=== PATIENT | male | born 1990 | race Caucasian/White ===

== ENCOUNTER 2018-06-13 09:41 | Emergency (ER) | payer SELFPAY ==
[2018-06-13] MEDS ORDERED: ONDANSETRON 4 MG/2 ML VIAL ONE (10:04)
[2018-06-13 10:25] LABS: Absolute Lymphocytes (CBC) 1.9 K/uL (0.7-4.9); Absolute Monocytes 0.8 K/uL (0.1-1.3); Absolute Neutrophil 17.9 K/uL (1.8-8.0); Basophils % 0.2 % (0-1.3); Hematocrit 47.6 % (39.6-49.0); Lymphocytes % 9.1 % (15.3-44.8); MPV 9.4 fL (7.6-11.3); RBC Red Blood Cell Count 5.19 M/uL (4.33-5.43)
--- NOTE | 2018-06-13 10:42 | RAD REPORT ---
EXAM DESCRIPTION: CT - CTHCSPWOC - 06/13/2018 10:12 am CLINICAL HISTORY: Trauma, head and neck injury. PAIN COMPARISON: [id number] dated 12/05/2010; Facial Bones W Con Mpr dated 06/13/2018 TECHNIQUE: Axial 5 mm thick images of the head were obtained. Axial 2 mm thick images of the cervical spine were obtained with sagittal and coronal reconstruction images generated and reviewed. Axial 2 mm thick images of the face were obtained with sagittal and coronal reconstructed images gene rated and reviewed. All CT scans are performed using dose optimization technique as appropriate and may include automated exposure control or mA/KV adjustment according to patient size. FINDINGS: CT HEAD WITHOUT CONTRAST: Acute subarachnoid hemorrhage is seen in the right temporal lobe.A focal intraparenchymal hematoma me asuring up 12 mm is also present involving the right temporal tip. Right convexity subdural hematoma is present maximally measuring 4 mm in thickness. A small amount of air is present in the right front al lobe compatible with pneumocephalus. There is minimal right to left midline shift present of 3 mm. Extensive right-sided calvarial and facial bone fracture is seen, fully detailed in dedicated CT face study. Hemorrhagic fluid is present in the sphenoid sinus and posterior ethmoid air cells. A large amount so ft tissue swelling is seen surrounding the right orbit and globe. Moderate right globe proptosis is p resent without vitreous abnormality. CT CERVICAL SPINE WITHOUT CONTRAST: No acute fracture or subluxation seen. . CT FACE WITHOUT CONTRAST: Comminuted fracture is present of the right zygoma. Fracture of the squamous right temporal bone is p resent with 4 mm inward depression and mild pneumocephalus. Right frontal bone fractures also present with mild inward depression. Fracture of the superior, lateral and inferior orbital rims present. Th ere is a large amount of periorbital soft tissue swelling present. The fracture extends to involve th e anterior aspect of the middle cranial fossa including the orbital apex. And right clinoid. Moderate fluid is present in the sphenoid sinus, likely hemorrhage. IMPRESSION: Acute right subdural hematoma is present with right subarachnoid hemorrhage also identif ied. Focal hemorrhagic intraparenchymal hematoma measuring 12 mm right temporal lobe tip. Right to left midline shift of 3 mm. Right zygomaticomaxillary complex fracture as detailed with hemorrhage within the sphenoid sinus. Mar ked right globe proptosis with extensive fractures involving the right orbit. Mildly depressed right lateral frontal calvarium and squamous right temporal bone fractures. Findings were discussed with BEN Pelletier in the ER 10:30 a.m. 06/13/2018 by telephone.
[2018-06-13] MEDS ORDERED: NA CHLORIDE 0.9% 1,000 ML ONE (11:14)
[2018-06-13] MEDS ORDERED: CLINDAMYCIN 900MG/D5W 900 MG/50 ML IVPB IV ONE (11:14)
[2018-06-13] MEDS ORDERED: MORPHINE 4 MG/ML SYR ONE (11:14)
--- NOTE | 2018-06-13 11:27 | ER ---
Nurse's Notes [facility] Name: Aston Vasquez Jr Age: 27 yrs Sex: Male : 1990 Arrival Date: 06/13/2018 Time: 09:44 Bed 4 Private MD: None, None Diagnosis: Traumatic subdural hemorrhage;Traumatic Subarachnoid hemorrhage;Pneumocephalus;Right Zygomaticomaxillary complex fracture with hemorrhage within the sphenoid sinus;Right globe proptosis with extensive right orbit fractures;Mildly depressed right frontal calvarium fracture;Rish temporal bone fracture Presentation: 06/13 09:49 Presenting complaint: Patient states: i fell and hit a tree last night and my eye has tw2 gotten worse, i have a terrible headache. pt is actively vomiting at this time. Transition of care: patient was not received from another setting of care. Onset of symptoms was June 13, 2018. Risk Assessment: Do you want to hurt yourself or someone else? Patient reports no desire to harm self or others. Initial Sepsis Screen: Does the patient meet any 2 criteria? No. Patient's initial sepsis screen is negative. Does the patient have a suspected source of infection? No. Patient's initial sepsis screen is negative. Care prior to arrival: None. 09:49 Method Of Arrival: Wheelchair tw2 09:50 Acuity: SUMAN 2 tw2 10:14 Mechanism of Injury: Fall fell onto "tree stump". Trauma event details: Injury occurred ph in the [facility], Injury occurred: at home. Injury occurred: June 13, 2018. Triage Assessment: 09:45 General: Appears well groomed, unkempt, Behavior is anxious. Pain: Complains of pain in tw2 right eye. EENT: Eyes swelling and bruising noted to right eye. Trauma Activation: Not Applicable Physician: ED Physician; Name: ; Notified At: ; Arrived At: Physician: General Surgeon; Name: ; Notified At: ; Arrived At: Physician: Radiology; Name: ; Notified At: ; Arrived At: Physician: Respiratory; Name: ; Notified At: ; Arrived At: Physician: Lab; Name: ; Notified At: ; Arrived At: Historical: - Allergies: 09:52 No Known Drug Allergies; tw2 - Home Meds: 09:52 Zoloft Oral [Active]; tw2 - PSHx: 09:52 None; tw2 - Immunization history:: Adult Immunizations. - Social history:: Smoking status: . - Immunization history: Last tetanus immunization: unknown. - Ebola Screening: : Patient denies travel to an Ebola-affected area in the 21 days before illness onset. Screenin:08 Abuse screen: Denies threats or abuse. Denies injuries from another. Nutritional ph screening: No deficits noted. Tuberculosis screening: No symptoms or risk factors identified. Fall Risk Fall in past 12 months (25 points). No secondary diagnosis (0 pts). IV access (20 points). Ambulatory Aid- None/Bed Rest/Nurse Assist (0 pts). Gait- Normal/Bed Rest/Wheelchair (0 pts) Mental Status- Oriented to own ability (0 pts). Total Coats Fall Scale indicates Low Risk Score (25-44 pts). Fall prevention measures have been instituted. Side Rails Up X 2 Frequent Obs/Assesments occuring Family Present and informed to notify staff if they need to leave bedside As available Patient and Family Educated on Fall Prevention Program and strategies. Primary Survey: 10:10 NO uncontrolled hemorrhage observed. A: The patient is alert. Airway: patent, No ph supplemental oxygen in use on arrival. Oral cavity: clear, Trachea midline. Breathing/Chest: Respiratory pattern: regular, Respiratory effort: spontaneous, unlabored, Chest inspection: symmetrical rise and fall of the chest. Circulation: Skin color: pink, Skin temperature: warm, dry. Disability Alert. Exposure/Environment: Obvious injury(ies) are noted at this time: swelling noted to R eye. 11:41 Reassessment Airway Airway Oxygen No O2 Breathing/Chest Respiratory pattern Regular ph Respiratory effort Spontaneous Unlabored Chest inspection Symmetrical Circulation Heart rhythm Sinus michelle Color [place] Temperature Warm Dry Disability Alert. Secondary Survey: 10:11 HEENT: Eyes: Edema noted right eye. Ecchymosis noted right eye. Ears: clear ph bilaterally. Nose: dried blood noted. Gastrointestinal: Patient is actively vomiting. Patient vomited prior to arrival. Musculoskeletal: Circulation, motion, and sensation intact. Range of motion: intact in all extremities. Assessment: 10:06 General: Appears in no apparent distress. uncomfortable, well groomed, Behavior is ph calm, cooperative, appropriate for age. Pain: Complains of pain in right eye. Neuro: Level of Consciousness is awake, alert, obeys commands, Oriented to person, place, time, situation, Speech is normal, Reports blurred vision dizziness, headache. Cardiovascular: Capillary refill < 3 seconds in bilateral fingers Patient's skin is warm and dry. Respiratory: Airway is patent Trachea midline Respiratory effort is even, labored. GI: Reports nausea, vomiting. EENT: R eye swollen w/ dark purple bruising noted, dried blood also noted from timothy nares, pt denies fluid or drainage from ears. Derm: Skin is intact, Skin is pink, warm \\T\\ dry. Musculoskeletal: Circulation, motion, and sensation intact. Range of motion: intact in all extremities. 11:38 Reassessment: Patient appears in no apparent distress at this time. Patient and/or ph family updated on plan of care and expected duration. Pain level reassessed. Patient is alert, oriented x 3, equal unlabored respirations, skin warm/dry/pink. Pt reports that pain has decreased to 8/10, denies nausea at this time, no change in neurological status noted at this time, report called to [facility] ED, awaiting EMS for transport. Neuro: Level of Consciousness is awake, alert, obeys commands, Oriented to person, place, time, situation, Speech is normal. 12:15 Reassessment: Patient appears in no apparent distress at this time. Patient and/or ph family updated on plan of care and expected duration. Pain level reassessed. Patient is alert, oriented x 3, equal unlabored respirations, skin warm/dry/pink. [place] [facility] at bedside, report given to Clarence SEARS-P, pt transferred to [facility]. Vital Signs: 09:45 BP 102 / 79; Pulse 50; Resp 20; Temp 97.8(O); Pulse Ox 100% on R/A; Weight 90.72 kg; ss Height 5 ft. 9 in. (175.26 cm); Pain 10/10; 10:14 BP 134 / 67; Pulse 57; Resp 20; Pulse Ox 97% ; sv 10:30 BP 126 / 73; Pulse 56; Resp 20; Pulse Ox 100% ; sv 11:12 BP 133 / 73; Pulse 53; Resp 20; Pulse Ox 95% on R/A; ph 12:09 BP 134 / 81; Pulse 54; Resp 18; Temp 98.2; Pulse Ox 98% on R/A; ph 09:45 Body Mass Index 29.53 (90.72 kg, 175.26 cm) ss Freda Coma Score: 10:13 Eye Response: spontaneous(4). Verbal Response: oriented(5). Motor Response: obeys ph commands(6). Total: 15. 11:08 Eye Response: spontaneous(4). Verbal Response: oriented(5). Motor Response: obeys kb commands(6). Total: 15. 11:12 Eye Response: spontaneous(4). Verbal Response: oriented(5). Motor Response: obeys ph commands(6). Total: 15. 12:09 Eye Response: spontaneous(4). Verbal Response: oriented(5). Motor Response: obeys ph commands(6). Total: 15. Trauma Score (Adult): 10:13 Eye Response: spontaneous(1); Verbal Response: oriented(1); Motor Response: obeys ph commands(2); Systolic BP: > 89 mm Hg(4); Respiratory Rate: 10 to 29 per min(4); Freda Score: 15; Trauma Score: 12 11:12 Eye Response: spontaneous(1); Verbal Response: oriented(1); Motor Response: obeys ph commands(2); Systolic BP: > 89 mm Hg(4); Respiratory Rate: 10 to 29 per min(4); [place] Score: 15; Trauma Score: 12 12:09 Eye Response: spontaneous(1); Verbal Response: oriented(1); Motor Response: obeys ph commands(2); Systolic BP: > 89 mm Hg(4); Respiratory Rate: 10 to 29 per min(4); Freda Score: 15; Trauma Score: 12 ED Course: 09:44 Patient arrived in ED. mr 09:44 None, None is Private Physician. mr 09:44 Bed in low position. Call light in reach. Pulse ox on. NIBP on. tw2 09:46 Tenisha Mejia FNP-C is PHCP. kb 09:46 Willy Casas MD is Attending Physician. kb 09:50 Triage completed. tw2 09:50 Arm band placed on. tw2 10:00 Inserted saline lock: 20 gauge in right antecubital area, using aseptic technique. ph 10:05 Paz Amato RN is Primary Nurse. ph 10:05 CT completed. Patient moved to CT via stretcher. [email or web address] 10:12 CT Head C Spine In Process Unspecified. EDMS 10:12 CT Facial Bones W/ Con \\T\\ Mpr In Process Unspecified. EDMS 10:14 Patient maintains SpO2 saturation greater than 95% on room air. Thermoregulation: warm ph blanket given to patient. 11:41 No provider procedures requiring assistance completed. Patient transferred, IV remains ph in place. Administered Medications: 10:05 Drug: Zofran 4 mg Route: IVP; Site: right antecubital; ph 12:15 Follow up: Response: No adverse reaction; Nausea is decreased; Vomiting decreased ph 11:11 Drug: morphine 4 mg Route: IVP; Site: right antecubital; ph 12:14 Follow up: Response: No adverse reaction ph 11:12 Drug: NS 0.9% 1000 ml Route: IV; Rate: 1000 ml; Site: right antecubital; ph 12:15 Follow up: Response: No adverse reaction; IV Status: Completed infusion ph 11:12 Drug: Clindamycin 900 mg Route: IVPB; Infused Over: 30 mins; Site: right antecubital; ph 12:14 Follow up: Response: No adverse reaction; IV Status: Completed infusion ph 12:14 Drug: Ancef 1 grams Route: IVPB; Site: right antecubital; ph 12:15 Follow up: Response: No adverse reaction; IV Status: Completed infusion ph Intake: 10:13 PO: 0ml; Total: 0ml. ph 11:12 IV: 500ml (IV Fluid); Total: 500ml. ph 12:09 IV: 500ml (IV Fluid); Total: 1000ml. ph Output: 10:13 Urine: 0ml; Total: 0ml. ph Outcome: 11:26 ER care complete, transfer ordered by MD. peralta 12:20 Transferred by ground EMS [place] to [facility], Transfer form completed. X-rays ph sent w/ patient. 12:20 Condition: stable 12:20 Instructed on the need for transfer. 12:21 Patient left the ED. ph 12:21 Patient's length of stay was not longer than 2 hours. ph Signatures: Dispatcher [employer] EDMS Tenisha Mejia, ANNABEL CONTRERAS-Ceci Mondragon, RN Eva Ragland Shelby, RN RN ss Paz Amato RN RN ph Rosa Maria Piedra RN RN tw2 Ying Garcia [id number] Corrections: (The following items were deleted from the chart) 09:50 09:49 Acuity: SUMAN 3 tw2 tw2 11:20 11:12 BP 133 / 73; Pulse 53bpm; Resp 10bpm; Pulse Ox 95% RA; ph ph 11:41 11:38 Reassessment: Patient appears in no apparent distress at this time. Patient ph and/or family updated on plan of care and expected duration. Pain level reassessed. Patient is alert, oriented x 3, equal unlabored respirations, skin warm/dry/pink. ph
--- NOTE | 2018-06-13 11:28 | EDPHYS ---
Physician Documentation [facility] Name: Aston Vasquez Jr Age: 27 yrs Sex: Male : 1990 Arrival Date: 06/13/2018 Time: 09:44 Bed 4 Private MD: None, None ED Physician Willy Casas HPI: 06/13 11:05 This 27 yrs old Male presents to ER via Wheelchair with complaints of Facial kb Trauma. 11:05 Trauma demographics: County: The injury occurred in [place] Location of Injury: The kb injury occurred at home, Date: June 12, 2018. Mechanism of injury: Fall: the patient fell from a standing position and struck tree stump. Associated injuries: The patient sustained injury to the head, hematoma, laceration, 4 cm(s), of the right lutheran, pain, swelling, tenderness. Onset: The symptoms/episode began/occurred last night. The patient has not experienced similar symptoms in the past. The patient has not recently seen a physician. Pt reports he had a couple of alcoholic drinks last night, tripped and fell. Hit eye on tree stump. Unknown LOC. Pt reports "I saw black, but don't think I passed out. I stumbled to my feet." Brother helped pt inside and into bed. Pt woke up this morning and the eye was swollen shut, had headache and dizziness so he decided to come in. . Historical: - Allergies: 09:52 No Known Drug Allergies; tw2 - Home Meds: 09:52 Zoloft Oral [Active]; tw2 - PSHx: 09:52 None; tw2 - Immunization history:: Adult Immunizations. - Social history:: Smoking status: . - Immunization history: Last tetanus immunization: unknown. - Ebola Screening: : Patient denies travel to an Ebola-affected area in the 21 days before illness onset. ROS: 10:40 Constitutional: Negative for fever, chills, and weight loss, ENT: Negative for injury, kb pain, and discharge, Neck: Negative for injury, pain, and swelling, Cardiovascular: Negative for chest pain, palpitations, and edema, Respiratory: Negative for shortness of breath, cough, wheezing, and pleuritic chest pain, Abdomen/GI: Negative for abdominal pain, nausea, vomiting, diarrhea, and constipation, Back: Negative for injury and pain, MS/Extremity: Negative for injury and deformity. 10:40 Eyes: Positive for pain, swelling, of the right upper eyelid and right lower eyelid, hematoma. 10:40 Skin: Positive for ecchymosis, hematoma, swelling, of the right upper eyelid and right lower eyelid. 10:40 Neuro: Positive for dizziness, headache, unknown loc. 10:43 Skin: Positive for laceration(s), of the right lutheran. kb Exam: 11:08 Constitutional: This is a well developed, well nourished patient who is awake, alert, kb and in no acute distress. ENT: Nares patent. No nasal discharge, no septal abnormalities noted. Tympanic membranes are normal and external auditory canals are clear. Oropharynx with no redness, swelling, or masses, exudates, or evidence of obstruction, uvula midline. Mucous membranes moist. Neck: Trachea midline, no thyromegaly or masses palpated, and no cervical lymphadenopathy. Supple, full range of motion without nuchal rigidity, or vertebral point tenderness. No Meningismus. Chest/axilla: Normal chest wall appearance and motion. Nontender with no deformity. No lesions are appreciated. Cardiovascular: Regular rate and rhythm with a normal S1 and S2. No gallops, murmurs, or rubs. Normal PMI, no JVD. No pulse deficits. Respiratory: Lungs have equal breath sounds bilaterally, clear to auscultation and percussion. No rales, rhonchi or wheezes noted. No increased work of breathing, no retractions or nasal flaring. Abdomen/GI: Soft, non-tender, with normal bowel sounds. No distension or tympany. No guarding or rebound. No evidence of tenderness throughout. Back: No spinal tenderness. No costovertebral tenderness. Full range of motion. Skin: Warm, dry with normal turgor. Normal color with no rashes, no lesions, and no evidence of cellulitis. MS/ Extremity: Pulses equal, no cyanosis. Neurovascular intact. Full, normal range of motion. Neuro: Awake and alert, GCS 15, oriented to person, place, time, and situation. Cranial nerves II-XII grossly intact. Motor strength 5/5 in all extremities. Sensory grossly intact. Cerebellar exam normal. Normal gait. 11:08 Head/face: Noted is no obvious of injury or deformity except contusion, ecchymosis, that is severe, of the right eye, hematoma, that is moderate, of the right eye, swelling, that is moderate, of the right eye and right lutheran, tenderness, that is moderate, of the right eye. 11:08 Eyes: Periorbital structures: swelling, ecchymosis, Pupils: equal, round, and reactive to light and accomodation, Extraocular movements: intact throughout, Conjunctiva: normal, Lids and lashes: ecchymosis, on the right, edema, of the right eye, Upper eyelid markedly swollen with ecchymosis. Able to manually open eye, pt moving eyeball with no pain. . Vital Signs: 09:45 BP 102 / 79; Pulse 50; Resp 20; Temp 97.8(O); Pulse Ox 100% on R/A; Weight 90.72 kg; ss Height 5 ft. 9 in. (175.26 cm); Pain 10/10; 10:14 BP 134 / 67; Pulse 57; Resp 20; Pulse Ox 97% ; sv 10:30 BP 126 / 73; Pulse 56; Resp 20; Pulse Ox 100% ; sv 11:12 BP 133 / 73; Pulse 53; Resp 20; Pulse Ox 95% on R/A; ph 12:09 BP 134 / 81; Pulse 54; Resp 18; Temp 98.2; Pulse Ox 98% on R/A; ph 09:45 Body Mass Index 29.53 (90.72 kg, 175.26 cm) ss Freda Coma Score: 10:13 Eye Response: spontaneous(4). Verbal Response: oriented(5). Motor Response: obeys ph commands(6). Total: 15. 11:08 Eye Response: spontaneous(4). Verbal Response: oriented(5). Motor Response: obeys kb commands(6). Total: 15. 11:12 Eye Response: spontaneous(4). Verbal Response: oriented(5). Motor Response: obeys ph commands(6). Total: 15. 12:09 Eye Response: spontaneous(4). Verbal Response: oriented(5). Motor Response: obeys ph commands(6). Total: 15. Trauma Score (Adult): 10:13 Eye Response: spontaneous(1); Verbal Response: oriented(1); Motor Response: obeys ph commands(2); Systolic BP: > 89 mm Hg(4); Respiratory Rate: 10 to 29 per min(4); Freda Score: 15; Trauma Score: 12 11:12 Eye Response: spontaneous(1); Verbal Response: oriented(1); Motor Response: obeys ph commands(2); Systolic BP: > 89 mm Hg(4); Respiratory Rate: 10 to 29 per min(4); Freda Score: 15; Trauma Score: 12 12:09 Eye Response: spontaneous(1); Verbal Response: oriented(1); Motor Response: obeys ph commands(2); Systolic BP: > 89 mm Hg(4); Respiratory Rate: 10 to 29 per min(4); Freda Score: 15; Trauma Score: 12 MDM: 09:46 Patient medically screened. kb 10:40 Data reviewed: vital signs, nurses notes. Data interpreted: Pulse oximetry: on room air kb is 97 %. Interpretation: normal. Counseling: I had a detailed discussion with the patient and/or guardian regarding: the historical points, exam findings, and any diagnostic results supporting the discharge/admit diagnosis, lab results, radiology results, the need to transfer to another facility, for higher level of care, [facility] does not immediately have the required specialist. 11:00 ED course: Discussed pt's history, condition and diagnostic findings with Dr Davis, kb trauma surgeon at [facility]. Accepts pt for transfer. 11:26 ED course: Pt is awake, alert and oriented x4. Pt understands plan of care and is in kb agreement. 11:30 ED course: Pt being transferred to [facility] due to trauma. . kb 06/13 09:52 Order name: CBC with Diff; Complete Time: 11:59 kb 06/13 09:52 Order name: CT Head C Spine; Complete Time: 10:44 kb 06/13 09:52 Order name: CT Facial Bones W/ Con \\T\\ Mpr; Complete Time: 12:15 kb 06/13 10:30 Order name: Manual Differential; Complete Time: 11:59 EDMS 06/13 09:52 Order name: IV Start; Complete Time: 10:05 kb Administered Medications: 10:05 Drug: Zofran 4 mg Route: IVP; Site: right antecubital; ph 12:15 Follow up: Response: No adverse reaction; Nausea is decreased; Vomiting decreased ph 11:11 Drug: morphine 4 mg Route: IVP; Site: right antecubital; ph 12:14 Follow up: Response: No adverse reaction ph 11:12 Drug: NS 0.9% 1000 ml Route: IV; Rate: 1000 ml; Site: right antecubital; ph 12:15 Follow up: Response: No adverse reaction; IV Status: Completed infusion ph 11:12 Drug: Clindamycin 900 mg Route: IVPB; Infused Over: 30 mins; Site: right antecubital; ph 12:14 Follow up: Response: No adverse reaction; IV Status: Completed infusion ph 12:14 Drug: Ancef 1 grams Route: IVPB; Site: right antecubital; ph 12:15 Follow up: Response: No adverse reaction; IV Status: Completed infusion ph Disposition: 11:41 Critical Care:. kb 15:36 Co-signature as Attending Physician, Willy Casas MD I agree with the assessment and romulo plan of care. Disposition: 06/13/18 11:26 Transfer ordered to [facility]. Diagnosis are Traumatic subdural hemorrhage, Traumatic Subarachnoid hemorrhage, Pneumocephalus, Right Zygomaticomaxillary complex fracture with hemorrhage within the sphenoid sinus, Right globe proptosis with extensive right orbit fractures, Mildly depressed right frontal calvarium fracture, Rish temporal bone fracture. - Reason for transfer: Higher level of care. - Accepting physician is Dr Davis. - Condition is Stable. - Problem is new. - Symptoms are unchanged. Critical care time excluding procedures: 11:41 Critical care time: Bedside Care: 10 minutes, Consultation: 10 minutes, Family kb Intervention: 10 minutes. Total time: 30 minutes Signatures: Dispatcher [employer] Tenisha Ash, BEN-C BEN-Willy Matt MD MD cha Hall, Patricia, RN RN ph Rosa Maria Piedra RN RN tw2 Corrections: (The following items were deleted from the chart) 11:17 11:08 Eyes: Periorbital structures: swelling, ecchymosis, Pupils: equal, round, and kb reactive to light and accomodation, Extraocular movements: intact throughout, Conjunctiva: normal, Lids and lashes: ecchymosis, on the right, edema, of the right eye, kb 12:21 11:26 06/13/2018 11:26 Transfer ordered to [facility]. ph Diagnosis is Traumatic subdural hemorrhage; Traumatic Subarachnoid hemorrhage; Pneumocephalus; Right Zygomaticomaxillary complex fracture with hemorrhage within the sphenoid sinus; Right globe proptosis with extensive right orbit fractures; Mildly depressed right frontal calvarium fracture; Rish temporal bone fracture. Reason for transfer: Higher level of care. Accepting physician is Dr Davis. Condition is Stable. Problem is new. Symptoms are unchanged. kb
[2018-06-13 11:55] LABS: Blood Morphology Comment NOT SEEN (NOT SEEN); Platelet Estimate ADEQ
--- NOTE | 2018-06-13 11:57 | RAD REPORT ---
EXAM DESCRIPTION: CT - CTFBWCON CLINICAL HISTORY: Facial pain;Swelling;Trauma;Pain CLINICAL HISTORY: Trauma, head and neck injury. PAIN COMPARISON: [id number] dated 12/05/2010; Facial Bones W Con Mpr dated 06/13/2018 TECHNIQUE: Axial 5 mm thick images of the head were obtained. Axial 2 mm thick images of the cervical spine were obtained with sagittal and coronal reconstruction images generated and reviewed. Axial 2 mm thick images of the face were obtained with sagittal and coronal reconstructed images gene rated and reviewed. All CT scans are performed using dose optimization technique as appropriate and may include automated exposure control or mA/KV adjustment according to patient size. FINDINGS: CT HEAD WITHOUT CONTRAST: Acute subarachnoid hemorrhage is seen in the right temporal lobe. A focal intraparenchymal hematoma m easuring up 12 mm is also present involving the right temporal tip. Right convexity subdural hematoma is present maximally measuring 4 mm in thickness. A small amount of air is present in the right fron patricia lobe compatible with pneumocephalus. There is minimal right to left midline shift present of 3 mm . Extensive right-sided calvarial and facial bone fracture is seen, fully detailed in dedicated CT face study. Hemorrhagic fluid is present in the sphenoid sinus and posterior ethmoid air cells. A large amount so ft tissue swelling is seen surrounding the right orbit and globe. Moderate right globe proptosis is p resent without vitreous abnormality. CT CERVICAL SPINE WITHOUT CONTRAST: No acute fracture or subluxation seen. . CT FACE WITHOUT CONTRAST: Comminuted fracture is present of the right zygoma. Fracture of the squamous right temporal bone is p resent with 4 mm inward depression and mild pneumocephalus. Right frontal bone fractures also present with mild inward depression. Fracture of the superior, lateral and inferior orbital rims present. Th ere is a large amount of periorbital soft tissue swelling present. The fracture extends to involve th e anterior aspect of the middle cranial fossa including the orbital apex. And right clinoid. Moderate fluid is present in the sphenoid sinus, likely hemorrhage. IMPRESSION: Acute right subdural hematoma is present with right subarachnoid hemorrhage also identif ied. Focal hemorrhagic intraparenchymal hematoma measuring 12 mm right temporal lobe tip. Right to left midline shift of 3 mm. Right zygomaticomaxillary complex fracture as detailed with hemorrhage within the sphenoid sinus. Mar ked right globe proptosis with extensive fractures involving the right orbit. Mildly depressed right lateral frontal calvarium and squamous right temporal bone fractures. Findings were discussed with BEN Pelletier in the ER 10:30 a.m. 06/13/2018 by telephone.
[2018-06-13] MEDS ORDERED: CEFAZOLIN/SWI 1gm 1 GM/10 ML SYR ONE (11:59)
[2018-06-14 02:23] VITALS: BP 134/81; TEMP 98.2; O2SAT 98
== END 2018-06-13 12:21 | disposition short-term general hospital (02) ==
LOC: ER 09:41
DX: S06.5X0A Traumatic subdural hemorrhage without loss of consciousness, initial encounter (principal); S06.6X0A Traumatic subarachnoid hemorrhage without loss of consciousness, initial encounter; S02.40CA Maxillary fracture, right side, initial encounter for closed fracture; S02.81XA Fracture of other specified skull and facial bones, right side, initial encounter for closed fracture; S02.19XA Other fracture of base of skull, initial encounter for closed fracture; W01.198A Fall on same level from slipping, tripping and stumbling with subsequent striking against other object, initial encounter; Y93.89 Activity, other specified; Y92.009 Unspecified place in unspecified non-institutional (private) residence as the place of occurrence of the external cause; G93.89 Other specified disorders of brain
CPT/HCPCS: 70450; 70487; 72125; 76377; 85025; 96365; 96375; 99285; J0690; J2405; J7030; Q9967

== ENCOUNTER 2020-07-08 11:07 | Emergency (ER) | payer SELFPAY ==
--- OUTSIDE RECORDS SUMMARY | 2020-07-08 11:10 | XMS REPORT | Continuity of Care Document ---
:1990 Author Organization [facility] t Address [address] [place] [address] Care Team Providers Name Role Phone Unavailable Unavailable Unavailable Problems This patient has no known problems. Allergies, Adverse Reactions, Alerts This patient has no known allergies or adverse reactions. Medications This patient has no known medications. Procedures This patient has no known procedures. Encounters Start End Encounter Admission Attending Care Care Encounter Source Date/Time Date/Time Type Type Clinicians Facility Department ID 2018-06-13 Inpatient E [facility] [id number] [facility] 14:47:00 Results This patient has no known results.
--- NOTE | 2020-07-08 13:56 | RAD REPORT ---
EXAM DESCRIPTION: CT - Head Brain Wo Cont - 07/08/2020 1:45 pm CLINICAL HISTORY: Headache COMPARISON: None TECHNIQUE: Computed axial tomography of the head was obtained. IV contrast was not requested. All CT scans are performed using dose optimization technique as appropriate and may include automated exposure control or mA/KV adjustment according to patient size. FINDINGS: An intracranial bleed is not seen . The ventricles are normal in caliber. No extra-axial fluid collection is noted. Mild ethmoid sinusitis IMPRESSION: No acute intracranial abnormality is seen. If patient's symptoms persist MRI of the bra in would be recommended. Mild ethmoid sinusitis
--- NOTE | 2020-07-08 14:06 | RAD REPORT ---
EXAM DESCRIPTION: CTHead angio07/08/2020 1:45 pm CLINICAL HISTORY: Visual disturbance COMPARISON: None TECHNIQUE: CT angiogram of the head was obtained. 3D MIPS reconstruction performed. All CT scans are performed using dose optimization technique as appropriate and may include automated exposure control or mA/KV adjustment according to patient size. FINDINGS: The basilar, internal carotid, anterior cerebral, middle cerebral and posterior cerebral a rteries are normal caliber. An aneurysm is not seen. A significant stenosis is not noted. IMPRESSION: Unremarkable CT angiogram head.
[2020-07-08] MEDS ORDERED: dexAMETHasone 10 MG/ML VIAL ONE (14:11)
[2020-07-08] MEDS ORDERED: METOCLOPRAMIDE 10 MG/2mL INJ ONE (14:11)
[2020-07-08 14:12] LABS: BUN Blood Urea Nitrogen 12 mg/dL (7-18); Bicarbonate 27 mmol/L (21-32); Glucose Level 82 mg/dL (74-106); Sodium Level 138 mmol/L (136-145)
[2020-07-08] MEDS ORDERED: DIPHENHYDRAMINE 50 MG/ML VIAL ONE (14:12)
[2020-07-08] MEDS ORDERED: NA CHLORIDE 0.9% 100 ML ONE (14:12)
[2020-07-08 14:13] LABS: Potassium 4.2 mmol/L (3.5-5.1)
[2020-07-08 14:14] LABS: Basophils % 0.8 % (0-1.3); Hematocrit 47.5 % (39.6-49.0); Lymphocytes % 28.6 % (15.3-44.8); MPV 8.9 fL (7.6-11.3)
--- NOTE | 2020-07-08 14:34 | EDPHYS ---
Physician Documentation [facility] Name: Aston Vasquez Jr Age: 30 yrs Sex: Male : 1990 Arrival Date: 07/08/2020 Time: 11:08 Bed 23 Private MD: RASHAAD Physician Juan Llanos HPI: 07/08 14:01 This 30 yrs old Male presents to ER via Ambulatory with complaints of jr8 Headache, Eye Pain. 14:01 The patient complains of pain to the right eye and right side and back of head. The jr8 patient describes the headache as throbbing. Onset: The symptoms/episode began/occurred gradually, 5 day(s) ago, and became worse and became persistent. Associated signs and symptoms: Pertinent positives: dizziness, nausea, Photophobia blurred vision. Severity of symptoms: At its worst the pain was moderate. Headache History: The patient has had previous headaches and this one is different than previous episodes. The symptoms are alleviated by nothing. the symptoms are aggravated by lights, movement, noise. The patient has not experienced similar symptoms in the past. The patient has not recently seen a physician. History of TBI last year. Since then has had on/off headaches in past. Started to have one 5 days ago that has not been relieved by anything and is getting worse . Historical: - Allergies: 12:34 No Known Allergies; em - PMHx: 12:34 TBI; em - PSHx: 12:34 None; em - Immunization history:: Adult Immunizations up to date, Client reports having NOT received the Covid vaccine. - Social history:: Smoking status: Patient denies any tobacco usage or history of. ROS: 14:01 Eyes: Negative for injury, pain, redness, and discharge, ENT: Negative for injury, jr8 pain, and discharge, Neck: Negative for injury, pain, and swelling, Cardiovascular: Negative for chest pain, palpitations, and edema, Respiratory: Negative for shortness of breath, cough, wheezing, and pleuritic chest pain, Back: Negative for injury and pain, MS/Extremity: Negative for injury and deformity, Skin: Negative for injury, rash, and discoloration. 14:01 Abdomen/GI: Positive for nausea and vomiting, Negative for abdominal pain, diarrhea, constipation. 14:01 Neuro: Positive for dizziness, headache, speech changes, visual changes, Negative for hearing loss, loss of consciousness, numbness, syncope, tingling. Exam: 14:01 Eyes: Pupils equal round and reactive to light, extra-ocular motions intact. Lids and jr8 lashes normal. Conjunctiva and sclera are non-icteric and not injected. Cornea within normal limits. Periorbital areas with no swelling, redness, or edema. ENT: Nares patent. No nasal discharge, no septal abnormalities noted. Tympanic membranes are normal and external auditory canals are clear. Oropharynx with no redness, swelling, or masses, exudates, or evidence of obstruction, uvula midline. Mucous membranes moist. Neck: Trachea midline, no thyromegaly or masses palpated, and no cervical lymphadenopathy. Supple, full range of motion without nuchal rigidity, or vertebral point tenderness. No Meningismus. Cardiovascular: Regular rate and rhythm with a normal S1 and S2. No gallops, murmurs, or rubs. Normal PMI, no JVD. No pulse deficits. Respiratory: Lungs have equal breath sounds bilaterally, clear to auscultation and percussion. No rales, rhonchi or wheezes noted. No increased work of breathing, no retractions or nasal flaring. Abdomen/GI: Soft, non-tender, with normal bowel sounds. No distension or tympany. No guarding or rebound. No evidence of tenderness throughout. Back: No spinal tenderness. No costovertebral tenderness. Full range of motion. Skin: Warm, dry with normal turgor. Normal color with no rashes, no lesions, and no evidence of cellulitis. MS/ Extremity: Pulses equal, no cyanosis. Neurovascular intact. Full, normal range of motion. 14:01 Neuro: Orientation: to person, place, time \T\ situation. Mentation: is normal, Memory: is normal, Cranial nerves: CN I not tested, CN II- XII are normal as tested, visual montez are intact. left eye only. 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 extraocular movements are intact, Facial palsy and sensory deficits are absent. no gross hearing deficit,. Nystagmus is absent. Speech is clear and appropriate. Tongue strength is normal, Cerebellar function: dysmetria is noted on the left, base line per patient from previous TBI, Motor: moves all fours, strength is 5/5 in all extremities, Sensation: no obvious gross deficits, Gait: is steady, seizure activity, is not displayed by the patient, Abnormal movements: there are no abnormal movements. Vital Signs: 12:30 BP 153 / 108; Pulse 70; Resp 18; Temp 98.3; Pulse Ox 100% on R/A; Weight 81.65 kg; em Height 5 ft. 8 in. (172.72 cm); Pain 8/10; 12:40 BP 156 / 96; Pulse 66; Resp 18 S; Pulse Ox 100% on R/A; ca1 13:32 BP 141 / 92; Pulse 64; Resp 16 S; Pulse Ox 100% on R/A; ca1 12:30 Body Mass Index 27.37 (81.65 kg, 172.72 cm) em MDM: 13:04 Patient medically screened. jr8 14:31 Data reviewed: vital signs, nurses notes, lab test result(s), radiologic studies, CT jr8 scan. Data interpreted: Pulse oximetry: on room air is 100 %. Interpretation: normal. Counseling: I had a detailed discussion with the patient and/or guardian regarding: the historical points, exam findings, and any diagnostic results supporting the discharge/admit diagnosis, lab results, radiology results, the need for outpatient follow up, a neurologist, to return to the emergency department if symptoms worsen or persist or if there are any questions or concerns that arise at home. ED course: No vascular anomaly on CT. Old changes noted from previous TBI but nothing new or acute. Most likely migraine as a sequela of his previous TBI. Will send him home on abortant but needs to f/u with Neurology at this point for further evaluation and possibly to be put on prophylactic . 07/08 13:14 Order name: CBC with Diff jr8 07/08 13:14 Order name: Basic Metabolic Panel jr8 07/08 13:15 Order name: CBC with Automated Diff; Complete Time: 14:31 EDMS 07/08 13:15 Order name: Basic Metabolic Panel; Complete Time: 14:17 EDMS 07/08 13:15 Order name: CT Head Brain wo Cont; Complete Time: 14:12 jr8 07/08 13:15 Order name: CT Head Angio; Complete Time: 14:12 jr8 07/08 13:14 Order name: IV; Complete Time: 13:37 jr Administered Medications: 13:53 Drug: Decadron - Dexamethasone 10 mg Route: IVP; Site: right antecubital; ca1 14:30 Follow up: Response: No adverse reaction; Pain is decreased ca1 13:55 Drug: Reglan (metoCLOPramide) 10 mg Route: IVP; Site: right subclavian; ca1 14:30 Follow up: Response: No adverse reaction; Pain is decreased ca1 14:08 Not Given (Patient Refused): Benadryl (diphenhydrAMINE) 12.5 mg IVP once ca1 Disposition: 07/08/20 14:33 Discharged to Home. Impression: Migraine without aura, intractable, with status migrainosus. - Condition is Stable. - Discharge Instructions: Migraine Headache, Recurrent Migraine Headache. - Prescriptions for ketorolac 10 mg Oral tablet - take 1 tablet by ORAL route every 12 hours As needed not to exceed 20 mg in 24hrs; 20 tablet. - Medication Reconciliation Form, Thank You Letter, Antibiotic Education, Prescription Opioid Use form. - Follow up: Larry Bridges MD; When: 1 week; Reason: Recheck today's complaints, Continuance of care, Re-evaluation by your physician. - Problem is new. - Symptoms have improved. Addendum: 07/10/2020 06:33 Co-signature as Attending Physician, Juan Llanos MD I agree with the assessment and t w4 plan of care. Signatures: Dispatcher [employer] Rhett Barry, RN RN em Vikram Miranda PA PA jr8 Juan Llanos MD MD tw4 Rosaura Benoit RN RN ca1 Selam Chen RN RN zb Corrections: (The following items were deleted from the chart) 07/08 14:52 14:33 07/08/2020 14:33 Discharged to Home. Impression: Migraine without aura, zb intractable, with status migrainosus. Condition is Stable. Forms are Medication Reconciliation Form, Thank You Letter, Antibiotic Education, Prescription Opioid Use. Follow up: Larry Bridges; When: 1 week; Reason: Recheck today's complaints, Continuance of care, Re-evaluation by your physician. Problem is new. Symptoms have improved. jr8
--- NOTE | 2020-07-08 14:34 | ER ---
Nurse's Notes [facility] Name: Aston Vasquez Jr Age: 30 yrs Sex: Male : 1990 Arrival Date: 07/08/2020 Time: 11:08 Bed 23 Private MD: Diagnosis: Migraine without aura, intractable, with status migrainosus Presentation: 07/08 12:30 Chief complaint: Patient states: had a TBI about 1.5-2 years ago, has had a right em frontal/evangelical and left sided neck pain that radiates into the back on the head, also reports seeing sports, dizziness and N/V, denies fever. Coronavirus screen: Client denies travel out of the [place] in the last 14 days. Ebola Screen: Patient negative for fever greater than or equal to 101.5 degrees Fahrenheit, and additional compatible Ebola Virus Disease symptoms Patient denies exposure to infectious person. Patient denies travel to an Ebola-affected area in the 21 days before illness onset. No symptoms or risks identified at this time. Initial Sepsis Screen: Does the patient meet any 2 criteria? No. Patient's initial sepsis screen is negative. Does the patient have a suspected source of infection? No. Patient's initial sepsis screen is negative. Risk Assessment: Do you want to hurt yourself or someone else? Patient reports no desire to harm self or others. Onset of symptoms was July 08, 2020. 12:30 Method Of Arrival: Ambulatory em 12:30 Acuity: SUMAN 3 em Historical: - Allergies: 12:34 No Known Allergies; em - PMHx: 12:34 TBI; em - PSHx: 12:34 None; em - Immunization history:: Adult Immunizations up to date, Client reports having NOT received the Covid vaccine. - Social history:: Smoking status: Patient denies any tobacco usage or history of. Screenin:40 Abuse screen: Denies threats or abuse. Denies injuries from another. Nutritional ca1 screening: No deficits noted. Tuberculosis screening: No symptoms or risk factors identified. Fall Risk IV access (20 points). Assessment: 12:40 General: Appears in no apparent distress. uncomfortable, Behavior is calm, cooperative, ca1 appropriate for age. Pain: Complains of pain in right frontal area, right side of the back of head, right temporal area, right side of forehead, right occipital area and right eye Pain currently is 8 out of 10 on a pain scale. Quality of pain is described as pressure, Pain began 5 days [employer]OTE [employer] Is intermittent. Neuro: Level of Consciousness is awake, alert, obeys commands, Oriented to person, place, time, situation, Safety Coordinator are equal bilaterally Moves all extremities. Gait is steady, Speech is normal, Facial symmetry appears normal, Reports dizziness, when laying down headache in right parietal area, frontal area, occipital area, since 5 days [employer]OTE [employer]. Cardiovascular: Heart tones S1 S2 present Capillary refill < 3 seconds Patient's skin is warm and dry. Respiratory: Airway is patent Respiratory effort is even, unlabored, Respiratory pattern is regular, symmetrical, Breath sounds are clear bilaterally. GI: Abdomen is flat, non-distended, Bowel sounds present X 4 quads. Abd is soft and non tender X 4 quads. Reports nausea, vomiting. : No signs and/or symptoms were reported regarding the genitourinary system. EENT: No signs and/or symptoms were reported regarding the EENT system. Derm: Skin is intact, is healthy with good turgor, Skin is pink, warm \T\ dry. Musculoskeletal: Circulation, motion, and sensation intact. Capillary refill < 3 seconds. 13:32 Reassessment: Patient appears in no apparent distress at this time. Patient and/or ca1 family updated on plan of care and expected duration. Pain level reassessed. Patient is alert, oriented x 3, equal unlabored respirations, skin warm/dry/pink. 14:42 Reassessment: ecp at bedside. zb 14:52 Reassessment: d/c instructions given . patient ambulatory gait even and steady upon zb discharge. Vital Signs: 12:30 BP 153 / 108; Pulse 70; Resp 18; Temp 98.3; Pulse Ox 100% on R/A; Weight 81.65 kg; em Height 5 ft. 8 in. (172.72 cm); Pain 8/10; 12:40 BP 156 / 96; Pulse 66; Resp 18 S; Pulse Ox 100% on R/A; ca1 13:32 BP 141 / 92; Pulse 64; Resp 16 S; Pulse Ox 100% on R/A; ca1 12:30 Body Mass Index 27.37 (81.65 kg, 172.72 cm) em ED Course: 11:08 Patient arrived in ED. am2 12:34 Triage completed. em 12:34 Arm band placed on. em 12:40 Patient has correct armband on for positive identification. Bed in low position. Call ca1 light in reach. Side rails up X 1. Pulse ox on. NIBP on. Door closed. Noise minimized. Lights dimmed. Warm blanket given. 12:45 Rosaura Benoit RN is Primary Nurse. ca1 13:03 Vikram Miranda PA is PHCP. jr8 13:03 Juan Llanos MD is Attending Physician. jr8 13:32 Initial lab(s) drawn, by ak, sent to lab. Inserted saline lock: 22 gauge in right ca1 antecubital area, using aseptic technique. Blood collected. 13:45 CT Head Brain wo Cont In Process Unspecified. EDMS 13:46 CT Head Angio In Process Unspecified. EDMS 14:33 Larry Bridges MD is Referral Physician. jr8 14:51 No provider procedures requiring assistance completed. IV discontinued, intact, zb bleeding controlled, No redness/swelling at site. Pressure dressing applied. Administered Medications: 13:53 Drug: Decadron - Dexamethasone 10 mg Route: IVP; Site: right antecubital; ca1 14:30 Follow up: Response: No adverse reaction; Pain is decreased ca1 13:55 Drug: Reglan (metoCLOPramide) 10 mg Route: IVP; Site: right subclavian; ca1 14:30 Follow up: Response: No adverse reaction; Pain is decreased ca1 14:08 Not Given (Patient Refused): Benadryl (diphenhydrAMINE) 12.5 mg IVP once ca1 Outcome: 14:33 Discharge ordered by . jr8 14:51 Discharged to home ambulatory. zb 14:51 Condition: improved 14:51 Discharge instructions given to patient, Instructed on discharge instructions, follow up and referral plans. Demonstrated understanding of instructions, follow-up care, medications, Prescriptions given X 1. 14:52 Patient left the ED. zb Signatures: Dispatcher [employer] EDRhett Avila RN RN Vikram Miranda PA PA jr8 Daphne Bustamante am2 Rosaura Benoit RN RN ca1 Selam Chen RN RN zb
[2020-07-08 15:01] VITALS: TEMP 98.3; O2SAT 100
[2020-07-08 15:04] VITALS: BP 141/92
== END 2020-07-08 14:52 | disposition home or self-care (01) ==
LOC: ER 11:07
DX: G43.011 Migraine without aura, intractable, with status migrainosus (principal)
CPT/HCPCS: 36415; 70450; 70496; 80048; 82565; 85025; 99284; J1100; J1200; J2765; Q9967